=== PATIENT | male | born 1975 | race Caucasian/White ===

== ENCOUNTER 2021-10-14 20:56 | Inpatient (IN) | payer OTHER, SELFPAY ==
[2021-10-14 21:24] VITALS: BP 139/86; PULSE 84; RESP 16; TEMP 36.3; O2SAT 96
[2021-10-14 22:57] VITALS: BMI 36.0
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
[2021-10-15 06:00] VITALS: BP 135/86; PULSE 85; RESP 18; TEMP 36.6; O2SAT 94
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
[2021-10-15] MEDS: busPIRone HCl 10 MG TABLET PO ×2 (09:27→22:43)
[2021-10-15] MEDS: Loratadine 10 MG TABLET PO (09:27)
[2021-10-15] MEDS: Sertraline HCL 50 MG TABLET PO (09:28)
[2021-10-15] MEDS: Metoprolol Succinate ER 25 MG TAB.ER.24H PO (09:28)
[2021-10-15] MEDS: Nicotine 21 MG PATCH.TD24 TRANSDERMA (09:29)
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
[2021-10-15 19:50] VITALS: BP 129/84; PULSE 89; TEMP 37.1
[2021-10-15] MEDS: QUEtiapine Fumarate 50 MG TABLET PO (22:44)
--- NOTE | 2021-10-16 | ECG_ITS ---
Test Reason : tachycardia Blood Pressure : / mmHG Vent. Rate : 110 BPM Atrial Rate : 110 BPM P-R Int : 144 ms QRS Dur : 082 ms QT Int : 336 ms P-R-T Axes : 058 063 052 degrees QTc Int : 454 ms Sinus tachycardia RSR' or QR pattern in V1 suggests right ventricular conduction delay Nonspecific ST abnormality Inferior leads Abnormal ECG No previous ECGs available Referred By: Isabella Howe Electronically Signed By:GWYN BRANDT MD
[2021-10-16 06:00] VITALS: BP 141/56; PULSE 71; RESP 18; TEMP 36.3; O2SAT 96
[2021-10-16 08:08] LABS: Estimated Average Glucose 111 mg/dL; Hemoglobin A1c % 5.5 %
[2021-10-16 08:15] LABS: Cholesterol 170 mg/dL; HDL Cholesterol 42 mg/dL; LDL Cholesterol Calculated 95 mg/dl; Triglycerides 167 mg/dL
[2021-10-16 08:27] VITALS: BP 132/72; PULSE 87
[2021-10-16] MEDS: Metoprolol Succinate ER 25 MG TAB.ER.24H PO (08:27)
[2021-10-16] MEDS: Nicotine 21 MG PATCH.TD24 TRANSDERMA (08:27)
[2021-10-16] MEDS: Sertraline HCL 50 MG TABLET PO (08:27)
[2021-10-16] MEDS: Loratadine 10 MG TABLET PO (08:27)
[2021-10-16] MEDS: Thiamine HCL 100 MG TABLET PO (08:27)
[2021-10-16] MEDS: busPIRone HCl 10 MG TABLET PO ×2 (08:28→20:12)
[2021-10-16] MEDS: Multivitamin TABLET 1 TAB PO (08:29)
[2021-10-16] MEDS: Cholecalciferol (Vitamin D3) 10 MCG TABLET PO (08:29)
[2021-10-16 08:33] LABS: TSH reflex Free T4 1.23 uIU/mL (0.32-4.0)
--- NOTE | 2021-10-16 11:36 | HO.PSYCHPN ---
Subjective Subjective Date of Service: 10/16/21 Reason For Visit: PTSD Subjective Notes: Conditional Voluntary Healthcare Proxy: No Guardianship: No Medical Problems Affecting Mental Status: No Interim History: feels better back on medications- no s/e doesn't want adjustment Medication Compliance: Yes Side effects from medications: No Review of Systems Acute medical concerns: No Medical Review of Systems: unchanged Mental Status Exam Mental Status Exam Patient Appearance: Unkempt Patient Orientation: Person, Place and Situation Level of Consciousness: Awake Patient Behavior: Appropriate and Cooperative Mood Description: Calm Affect Description: Calm Patient Cognition Impaired: No Ability to Follow Directions: Fair Speech Pattern: Clear Hallucinations: None Delusions: Not Present Thought Process: Intact and Goal Oriented Thought Content: positive for Intact Judgement: Fair Diagnostics Vital Signs (24Hr): Vital Signs - 24 hr 10/15/21 19:50 10/16/21 06:00 10/16/21 08:27 Temperature 98.7 F 97.4 F Pulse Rate 89 71 87 Respiratory Rate 18 Blood Pressure 129/84 141/56 H 132/72 Pulse Oximetry 96 Body Mass Index 36.0 Labs Labs: Laboratory Results - last 48 hr 10/16/21 10/16/21 10/16/21 07:37 07:37 07:37 Estimat Average Glucose 111 Hemoglobin A1c % 5.5 Triglycerides 167 Cholesterol 170 LDL Cholesterol, Calc 95 HDL Cholesterol 42 TSH Cancelled 10/16/21 07:37 Estimat Average Glucose Hemoglobin A1c % Triglycerides Cholesterol LDL Cholesterol, Calc HDL Cholesterol TSH 1.23 Medications Medications Current Medications Acetaminophen (Acetaminophen 325 Mg Tablet) 650 mg PO Q6H PRN PRN Reason: Headache/Pain Mild Scale (1-3) Al Hydroxide/Mg Hydroxide (Magnesium Hydrox/Alum Hydrox 30 Ml Oral.Susp) 30 ml PO Q6H PRN PRN Reason: Heartburn/Nausea Buspirone HCl (Buspirone Hcl 10 Mg Tablet) 10 mg PO BID [facility] Last Admin: 10/16/21 08:28 Dose: 10 mg Documented by: Hydroxyzine HCl (Hydroxyzine Hcl 25 Mg Tablet) 25 mg PO BEDTIME PRN PRN Reason: Anxiety Hydroxyzine HCl (Hydroxyzine Hcl 50 Mg Tablet) 50 mg PO Q6H PRN PRN Reason: anxiety Loratadine (Loratadine 10 Mg Tablet) 10 mg PO DAILY [facility] Last Admin: 10/16/21 08:27 Dose: 10 mg Documented by: Magnesium Hydroxide (Milk Of Magnesia 30 Ml Oral.Susp) 30 ml PO DAILY PRN PRN Reason: Constipation Metoprolol Succinate (Metoprolol Succinate Er 25 Mg Tab.Er.24h) 25 mg PO DAILY [facility]; Protocol Last Admin: 10/16/21 08:27 Dose: 25 mg Documented by: Multivitamins/Vitamin C (Multivitamin Tablet) 1 tab PO DAILY [facility] Last Admin: 10/16/21 08:29 Dose: 1 tab Documented by: Nicotine (Nicotine 21 Mg Patch.Td24) 21 mg TRANSDERMA DAILY [facility] Last Admin: 10/16/21 08:27 Dose: 21 mg Documented by: Nicotine Polacrilex (Nicotine Polacrilex 2 Mg Gum) 2 mg BUCCAL Q2H PRN PRN Reason: Smoking Cessation Quetiapine Fumarate (Quetiapine Fumarate 50 Mg Tablet) 50 mg PO BEDTIME [facility] Last Admin: 10/15/21 22:44 Dose: 50 mg Documented by: Sertraline HCl (Sertraline Hcl 50 Mg Tablet) 50 mg PO DAILY [facility] Last Admin: 10/16/21 08:27 Dose: 50 mg Documented by: Thiamine HCl (Thiamine Hcl 100 Mg Tablet) 100 mg PO DAILY [facility] Last Admin: 10/16/21 08:27 Dose: 100 mg Documented by: Trazodone HCl (Trazodone Hcl 50 Mg Tablet) 50 mg PO BEDTIME PRN PRN Reason: Insomnia Vitamin D (Cholecalciferol (Vitamin D3) 10 Mcg Tablet) 10 mcg PO DAILY [facility] Last Admin: 10/16/21 08:29 Dose: 10 mcg Documented by: Allergies Allergies Allergy/AdvReac Type Severity Reaction Status Date / Time tomato Allergy Severe Swelling Verified 10/14/21 21:24 Assessment & Plan Assessment & Plan (1) Recurrent major depression-severe: Status: Acute Code(s): F33.2 - Major depressive disorder, recurrent severe without psychotic features Assessment and Plan: Continue current regime Titrate regime as indicated when re-established Referral for out patient care feeling better back on meds (2) Alcohol use disorder, severe, dependence: Status: Acute Code(s): F10.20 - Alcohol dependence, uncomplicated Assessment and Plan: CIWA MVI 1 daily Thiamine 100 mg daily Vitamin D 10 mcg daily A1C, Lipids, TSH, FT4, B12, Folate Assessment and Plan: no acute withdrawl I spent minutes with the patient and/or on the patient floor today, greater than?50% of which was spent counseling/coordinating care. Reason for contiued inpatient stay Substantial Risk for: rapid decompensation
[2021-10-16 20:00] VITALS: BP 148/72; PULSE 97; RESP 18; TEMP 36.6; O2SAT 96
[2021-10-16] MEDS: QUEtiapine Fumarate 50 MG TABLET PO (20:11)
[2021-10-17 06:00] VITALS: BP 106/66; PULSE 102; RESP 18; TEMP 36.4; O2SAT 96
[2021-10-17 09:03] VITALS: BP 111/80; PULSE 111
[2021-10-17] MEDS: Multivitamin TABLET 1 TAB PO (09:03)
[2021-10-17] MEDS: Cholecalciferol (Vitamin D3) 10 MCG TABLET PO (09:03)
[2021-10-17] MEDS: Sertraline HCL 50 MG TABLET PO (09:03)
[2021-10-17] MEDS: busPIRone HCl 10 MG TABLET PO ×2 (09:03→21:52)
[2021-10-17] MEDS: Loratadine 10 MG TABLET PO (09:03)
[2021-10-17] MEDS: Thiamine HCL 100 MG TABLET PO (09:03)
[2021-10-17] MEDS: Nicotine 21 MG PATCH.TD24 TRANSDERMA (09:03)
[2021-10-17] MEDS: Metoprolol Succinate ER 25 MG TAB.ER.24H PO (09:03)
--- NOTE | 2021-10-17 10:58 | P.PNPSI_ITS ---
Subjective Subjective Date of Service: 10/17/21 Reason For Visit: PTSD Subjective Notes: Conditional Voluntary Healthcare Proxy: No Guardianship: No Medical Problems Affecting Mental Status: No Interim History: Continues to feel improved some trouble with dry mouth over cpap without water- Denies craving etoh=- or other sub no withdrawl Sleep ok otgter than dry mouth/throat no s/e of medications no SI Plans to get outpt care at [facility] or [facility] which are near where he lives- He has support of dad and neighbors Medication Compliance: Yes Side effects from medications: No Attending Groups: No Review of Systems Acute medical concerns: No Medical Review of Systems: unchanged Mental Status Exam Mental Status Exam Narrative: better eye contact Patient Appearance: Appropriate Patient Orientation: Person, Place and Situation Level of Consciousness: Awake Patient Behavior: Appropriate and Cooperative Mood Description: Calm Affect Description: Calm Patient Cognition Impaired: No Ability to Follow Directions: Fair Speech Pattern: Clear Hallucinations: None Delusions: Not Present Thought Process: Intact and Goal Oriented Thought Content: positive for Intact Judgement: Fair Diagnostics Vital Signs (24Hr): Vital Signs - 24 hr 10/16/21 20:00 10/17/21 06:00 10/17/21 09:03 Temperature 97.8 F 97.6 F Pulse Rate 97 102 H 111 H Respiratory Rate 18 18 Blood Pressure 148/72 H 106/66 111/80 Pulse Oximetry 96 96 Body Mass Index 36.0 Labs Labs: Laboratory Results - last 48 hr 10/16/21 10/16/21 10/16/21 07:37 07:37 07:37 Estimat Average Glucose 111 Hemoglobin A1c % 5.5 Triglycerides 167 Cholesterol 170 LDL Cholesterol, Calc 95 HDL Cholesterol 42 TSH Cancelled 10/16/21 07:37 Estimat Average Glucose Hemoglobin A1c % Triglycerides Cholesterol LDL Cholesterol, Calc HDL Cholesterol TSH 1.23 EKG EKG: reviewed (10/17/21) Medications Medications Current Medications Acetaminophen (Acetaminophen 325 Mg Tablet) 650 mg PO Q6H PRN PRN Reason: Headache/Pain Mild Scale (1-3) Al Hydroxide/Mg Hydroxide (Magnesium Hydrox/Alum Hydrox 30 Ml Oral.Susp) 30 ml PO Q6H PRN PRN Reason: Heartburn/Nausea Buspirone HCl (Buspirone Hcl 10 Mg Tablet) 10 mg PO BID [facility] Last Admin: 10/17/21 09:03 Dose: 10 mg Documented by: Hydroxyzine HCl (Hydroxyzine Hcl 25 Mg Tablet) 25 mg PO BEDTIME PRN PRN Reason: Anxiety Hydroxyzine HCl (Hydroxyzine Hcl 50 Mg Tablet) 50 mg PO Q6H PRN PRN Reason: anxiety Loratadine (Loratadine 10 Mg Tablet) 10 mg PO DAILY [facility] Last Admin: 10/17/21 09:03 Dose: 10 mg Documented by: Magnesium Hydroxide (Milk Of Magnesia 30 Ml Oral.Susp) 30 ml PO DAILY PRN PRN Reason: Constipation Metoprolol Succinate (Metoprolol Succinate Er 25 Mg Tab.Er.24h) 25 mg PO DAILY [facility]; Protocol Last Admin: 10/17/21 09:03 Dose: 25 mg Documented by: Multivitamins/Vitamin C (Multivitamin Tablet) 1 tab PO DAILY [facility] Last Admin: 10/17/21 09:03 Dose: 1 tab Documented by: Nicotine (Nicotine 21 Mg Patch.Td24) 21 mg TRANSDERMA DAILY [facility] Last Admin: 10/17/21 09:03 Dose: 21 mg Documented by: Nicotine Polacrilex (Nicotine Polacrilex 2 Mg Gum) 2 mg BUCCAL Q2H PRN PRN Reason: Smoking Cessation Quetiapine Fumarate (Quetiapine Fumarate 50 Mg Tablet) 50 mg PO BEDTIME [facility] Last Admin: 10/16/21 20:11 Dose: 50 mg Documented by: Sertraline HCl (Sertraline Hcl 50 Mg Tablet) 50 mg PO DAILY [facility] Last Admin: 10/17/21 09:03 Dose: 50 mg Documented by: Thiamine HCl (Thiamine Hcl 100 Mg Tablet) 100 mg PO DAILY [facility] Last Admin: 10/17/21 09:03 Dose: 100 mg Documented by: Trazodone HCl (Trazodone Hcl 50 Mg Tablet) 50 mg PO BEDTIME PRN PRN Reason: Insomnia Vitamin D (Cholecalciferol (Vitamin D3) 10 Mcg Tablet) 10 mcg PO DAILY [facility] Last Admin: 10/17/21 09:03 Dose: 10 mcg Documented by: Allergies Allergies Allergy/AdvReac Type Severity Reaction Status Date / Time tomato Allergy Severe Swelling Verified 10/14/21 21:24 Assessment & Plan Assessment & Plan (1) Recurrent major depression-severe: Status: Acute Code(s): F33.2 - Major depressive disorder, recurrent severe without psychotic features Assessment and Plan: Continue current regime pt happy with medications at present Referral for out patient care feeling better back on meds future oriented (2) Alcohol use disorder, severe, dependence: Status: Acute Code(s): F10.20 - Alcohol dependence, uncomplicated Assessment and Plan: CIWA- has not needed benzo MVI 1 daily Thiamine 100 mg daily Vitamin D 10 mcg daily A1C, Lipids, TSH, FT4, B12, Folate denies cravings or withdrawl sys Assessment and Plan: no acute withdrawl or cravings I spent minutes with the patient and/or on the patient floor today, greater than?50% of which was spent counseling/coordinating care. Patient educated on: medication risk/benefits, substance abuse and other (dc follow up,not interested in php) Informed Consent: understands Reason for contiued inpatient stay Substantial Risk for: rapid decompensation
[2021-10-17 21:45] VITALS: BP 156/81; PULSE 99; TEMP 36
[2021-10-17] MEDS: QUEtiapine Fumarate 50 MG TABLET PO (21:51)
[2021-10-17 23:24] VITALS: PULSE 98; O2SAT 93
[2021-10-18 06:42] VITALS: BP 132/62; PULSE 96; RESP 18; TEMP 37; O2SAT 95
[2021-10-18] MEDS: Nicotine 21 MG PATCH.TD24 TRANSDERMA (08:54)
[2021-10-18] MEDS: Multivitamin TABLET 1 TAB PO (08:54)
[2021-10-18] MEDS: Loratadine 10 MG TABLET PO (08:54)
[2021-10-18 08:55] VITALS: BP 132/62; PULSE 96
[2021-10-18] MEDS: Thiamine HCL 100 MG TABLET PO (08:55)
[2021-10-18] MEDS: Metoprolol Succinate ER 25 MG TAB.ER.24H PO (08:55)
[2021-10-18] MEDS: Cholecalciferol (Vitamin D3) 10 MCG TABLET PO (08:55)
[2021-10-18] MEDS: busPIRone HCl 10 MG TABLET PO ×2 (08:55→21:29)
[2021-10-18] MEDS: Sertraline HCL 50 MG TABLET PO (08:55)
[2021-10-18 09:35] LABS: Folate 17.5 ng/mL (> or = 4.0); Vitamin B12 597 pg/mL (200-900)
--- NOTE | 2021-10-18 13:17 | P.PNPSI_ITS ---
Subjective Subjective Date of Service: 10/18/21 Reason For Visit: PTSD Subjective Notes: Conditional Voluntary Healthcare Proxy: No Guardianship: No Medical Problems Affecting Mental Status: No Interim History: No symptoms of withdrawal. Pt reports no SE with re- establishing medication regime. Met with pt and Evangelista MORA. Discharge planned for 10/20. Pt asking for referral for new OP team. Feeling stronger-wanting to talk with his staff attorney today regarding his case and how to proceed. I am ready to deal with this. Medication Compliance: Yes Side effects from medications: No Attending Groups: Yes Review of Systems Acute medical concerns: No Medical Review of Systems: unchanged Review of Systems Psychiatric: Reports anxiety Mental Status Exam Mental Status Exam Narrative: better eye contact Patient Appearance: Appropriate Patient Orientation: Person, Place and Situation Level of Consciousness: Awake Patient Behavior: Appropriate and Cooperative Mood Description: Calm Affect Description: Calm Patient Cognition Impaired: No Ability to Follow Directions: Fair Speech Pattern: Clear Hallucinations: None Delusions: Not Present Thought Process: Intact and Goal Oriented Thought Content: positive for Intact Judgement: Fair Diagnostics Vital Signs (24Hr): Vital Signs - 24 hr 10/17/21 21:45 10/18/21 06:42 10/18/21 08:55 Temperature 96.8 F 98.6 F Pulse Rate 99 96 96 Respiratory Rate 18 Blood Pressure 156/81 H 132/62 132/62 Pulse Oximetry 95 Body Mass Index 36.0 Labs Labs: Laboratory Results - last 48 hr 10/16/21 07:37 Vitamin B12 597 Folate 17.5 Medications Medications Current Medications Acetaminophen (Acetaminophen 325 Mg Tablet) 650 mg PO Q6H PRN PRN Reason: Headache/Pain Mild Scale (1-3) Al Hydroxide/Mg Hydroxide (Magnesium Hydrox/Alum Hydrox 30 Ml Oral.Susp) 30 ml PO Q6H PRN PRN Reason: Heartburn/Nausea Buspirone HCl (Buspirone Hcl 10 Mg Tablet) 10 mg PO BID [facility] Last Admin: 10/18/21 08:55 Dose: 10 mg Documented by: Hydroxyzine HCl (Hydroxyzine Hcl 25 Mg Tablet) 25 mg PO BEDTIME PRN PRN Reason: Anxiety Hydroxyzine HCl (Hydroxyzine Hcl 50 Mg Tablet) 50 mg PO Q6H PRN PRN Reason: anxiety Loratadine (Loratadine 10 Mg Tablet) 10 mg PO DAILY [facility] Last Admin: 10/18/21 08:54 Dose: 10 mg Documented by: Magnesium Hydroxide (Milk Of Magnesia 30 Ml Oral.Susp) 30 ml PO DAILY PRN PRN Reason: Constipation Metoprolol Succinate (Metoprolol Succinate Er 25 Mg Tab.Er.24h) 25 mg PO DAILY [facility]; Protocol Last Admin: 10/18/21 08:55 Dose: 25 mg Documented by: Multivitamins/Vitamin C (Multivitamin Tablet) 1 tab PO DAILY [facility] Last Admin: 10/18/21 08:54 Dose: 1 tab Documented by: Nicotine (Nicotine 21 Mg Patch.Td24) 21 mg TRANSDERMA DAILY [facility] Last Admin: 10/18/21 08:54 Dose: 21 mg Documented by: Nicotine Polacrilex (Nicotine Polacrilex 2 Mg Gum) 2 mg BUCCAL Q2H PRN PRN Reason: Smoking Cessation Quetiapine Fumarate (Quetiapine Fumarate 50 Mg Tablet) 50 mg PO BEDTIME [facility] Last Admin: 10/17/21 21:51 Dose: 50 mg Documented by: Sertraline HCl (Sertraline Hcl 50 Mg Tablet) 50 mg PO DAILY [facility] Last Admin: 10/18/21 08:55 Dose: 50 mg Documented by: Thiamine HCl (Thiamine Hcl 100 Mg Tablet) 100 mg PO DAILY [facility] Last Admin: 10/18/21 08:55 Dose: 100 mg Documented by: Trazodone HCl (Trazodone Hcl 50 Mg Tablet) 50 mg PO BEDTIME PRN PRN Reason: Insomnia Vitamin D (Cholecalciferol (Vitamin D3) 10 Mcg Tablet) 10 mcg PO DAILY [facility] Last Admin: 10/18/21 08:55 Dose: 10 mcg Documented by: Allergies Allergies Allergy/AdvReac Type Severity Reaction Status Date / Time tomato Allergy Severe Swelling Verified 10/14/21 21:24 Assessment & Plan Assessment & Plan (1) Recurrent major depression-severe: Status: Acute Code(s): F33.2 - Major depressive disorder, recurrent severe without psychotic features Assessment and Plan: Continue current regime pt happy with medications at present Referral for out patient care feeling better back on meds future oriented (2) Alcohol use disorder, severe, dependence: Status: Acute Code(s): F10.20 - Alcohol dependence, uncomplicated Assessment and Plan: CIWA- has not needed benzo MVI 1 daily Thiamine 100 mg daily Vitamin D 10 mcg daily A1C, Lipids, TSH, FT4, B12, Folate denies cravings or withdrawl sys Assessment and Plan: no acute withdrawl or cravings Tentative discharge for 10/20/21. I spent 25 minutes with the patient and/or on the patient floor today, greater than?50% of which was spent counseling/coordinating care. Patient educated on: therapeutic strategies Informed Consent: understands Reason for contiued inpatient stay Substantial Risk for: harm to self, inability to function and rapid decompensation
[2021-10-18 17:55] VITALS: BP 140/72; PULSE 102; TEMP 36.8; O2SAT 96
[2021-10-18] MEDS: QUEtiapine Fumarate 50 MG TABLET PO (21:29)
[2021-10-18 23:26] VITALS: PULSE 101; O2SAT 94
[2021-10-19 06:00] VITALS: BP 117/80; PULSE 99
[2021-10-19 08:45] VITALS: BP 124/77; PULSE 104; RESP 20; O2SAT 97
[2021-10-19] MEDS: Loratadine 10 MG TABLET PO (09:03)
[2021-10-19] MEDS: Thiamine HCL 100 MG TABLET PO (09:03)
[2021-10-19] MEDS: Cholecalciferol (Vitamin D3) 10 MCG TABLET PO (09:03)
[2021-10-19] MEDS: busPIRone HCl 10 MG TABLET PO ×2 (09:03→20:15)
[2021-10-19] MEDS: Sertraline HCL 50 MG TABLET PO (09:03)
[2021-10-19] MEDS: Multivitamin TABLET 1 TAB PO (09:03)
[2021-10-19 09:04] VITALS: BP 124/77; PULSE 104
[2021-10-19] MEDS: Nicotine 21 MG PATCH.TD24 TRANSDERMA (09:04)
[2021-10-19] MEDS: Metoprolol Succinate ER 25 MG TAB.ER.24H PO (09:04)
--- NOTE | 2021-10-19 10:02 | P.PNPSI_ITS ---
Subjective Subjective Date of Service: 10/19/21 Reason For Visit: PTSD Subjective Notes: Conditional Voluntary Interim History: Pt reports decrease symptoms of depression and more hopeful about his recovery. He denies SI/HI. He reports sleeping and eating well. He r eports missing his roommates at shared housing. He reports he wants to go back home soon. He is visible in the unit, he attends groups. No behavioral concern. Medication Compliance: Yes Side effects from medications: No Review of Systems Review of Systems Gen: no fever Resp: no sob, no cough CV: no chest, no NICHOLAS, no leg edema GI: No n/v, no abd pain Neuro: No confusion chronic pain Yes all other systems are reviewed and are negative Constitutional: Reports no additional constitutional complaints and Reports stops breathing during sleep (has CPAP) Eyes: Reports no additional eye complaints Reports system reviewed and no additional complaints, except as documented and Reports Normal hearing present Cardiovascular: Reports no additional cardiovascular complaints Respiratory: Reports no additional respiratory complaints Gastrointestinal: Reports no additional gastrointestinal complaints Genitourinary: Reports no additional male genitourinary complaints Musculoskeletal: Reports no additional musculoskeletal complaints Skin/Breast: Reports system reviewed and no additional complaints, except as docu Reports Normal hearing present and Reports behavioral changes Psychiatric: Reports abnormal sleep pattern, Reports anxiety, Reports behavioral changes, Reports change in appetite, Reports depression, Reports difficulty co ncentrating, Reports hopelessness, Reports anhedonia and Reports suicidal ideation Endocrine: Reports no additional endocrine complaints Hematologic/Lymphatic: Reports no additional hematologic/lymphatic complaints Allergic/Immunologic: Reports no additional allergic/immunologic complaints Mental Status Exam Mental Status Exam Narrative: better eye contact Patient Appearance: Appropriate Patient Orientation: Person, Place and Situation Level of Consciousness: Awake Patient Behavior: Appropriate and Cooperative Mood Description: Calm Affect Description: Calm Patient Cognition Impaired: No Ability to Follow Directions: Fair Speech Pattern: Clear Memory Description: Intact Diagnostics Vital Signs (24Hr): Vital Signs - 24 hr 10/19/21 18:00 10/20/21 06:10 10/20/21 09:08 Temperature 97.8 F 96.9 F Pulse Rate 97 103 H 110 H Respiratory Rate 18 18 Blood Pressure 146/72 H 125/75 135/87 Pulse Oximetry 97 96 Body Mass Index 36.0 Medications Medications Current Medications Acetaminophen (Acetaminophen 325 Mg Tablet) 650 mg PO Q6H PRN PRN Reason: Headache/Pain Mild Scale (1-3) Al Hydroxide/Mg Hydroxide (Magnesium Hydrox/Alum Hydrox 30 Ml Oral.Susp) 30 ml PO Q6H PRN PRN Reason: Heartburn/Nausea Buspirone HCl (Buspirone Hcl 10 Mg Tablet) 10 mg PO BID [facility] Last Admin: 10/20/21 09:08 Dose: 10 mg Documented by: Hydroxyzine HCl (Hydroxyzine Hcl 25 Mg Tablet) 25 mg PO BEDTIME PRN PRN Reason: Anxiety Hydroxyzine HCl (Hydroxyzine Hcl 50 Mg Tablet) 50 mg PO Q6H PRN PRN Reason: anxiety Loratadine (Loratadine 10 Mg Tablet) 10 mg PO DAILY [facility] Last Admin: 10/20/21 09:08 Dose: 10 mg Documented by: Magnesium Hydroxide (Milk Of Magnesia 30 Ml Oral.Susp) 30 ml PO DAILY PRN PRN Reason: Constipation Metoprolol Succinate (Metoprolol Succinate Er 25 Mg Tab.Er.24h) 25 mg PO DAILY [facility]; Protocol Last Admin: 10/20/21 09:08 Dose: 25 mg Documented by: Multivitamins/Vitamin C (Multivitamin Tablet) 1 tab PO DAILY [facility] Last Admin: 10/20/21 09:08 Dose: 1 tab Documented by: Nicotine (Nicotine 21 Mg Patch.Td24) 21 mg TRANSDERMA DAILY [facility] Last Admin: 10/20/21 09:07 Dose: 21 mg Documented by: Nicotine Polacrilex (Nicotine Polacrilex 2 Mg Gum) 2 mg BUCCAL Q2H PRN PRN Reason: Smoking Cessation Quetiapine Fumarate (Quetiapine Fumarate 50 Mg Tablet) 50 mg PO BEDTIME [facility] Last Admin: 10/19/21 20:15 Dose: 50 mg Documented by: Sertraline HCl (Sertraline Hcl 50 Mg Tablet) 50 mg PO DAILY [facility] Last Admin: 10/20/21 09:08 Dose: 50 mg Documented by: Thiamine HCl (Thiamine Hcl 100 Mg Tablet) 100 mg PO DAILY [facility] Last Admin: 10/20/21 09:08 Dose: 100 mg Documented by: Trazodone HCl (Trazodone Hcl 50 Mg Tablet) 50 mg PO BEDTIME PRN PRN Reason: Insomnia Vitamin D (Cholecalciferol (Vitamin D3) 10 Mcg Tablet) 10 mcg PO DAILY [facility] Last Admin: 10/20/21 09:08 Dose: 10 mcg Documented by: Allergies Allergies Allergy/AdvReac Type Severity Reaction Status Date / Time tomato Allergy Severe Swelling Verified 10/14/21 21:24 Assessment & Plan Assessment & Plan (1) Recurrent major depression-severe: Status: Acute Code(s): F33.2 - Major depressive disorder, recurrent severe without psychotic features Assessment and Plan: Continue current regime pt happy with medications at present Referral for out patient care feeling better back on meds future oriented (2) Alcohol use disorder, severe, dependence: Status: Acute Code(s): F10.20 - Alcohol dependence, uncomplicated Assessment and Plan: CIWA- has not needed benzo MVI 1 daily Thiamine 100 mg daily Vitamin D 10 mcg daily A1C, Lipids, TSH, FT4, B12, Folate denies cravings or withdrawl sys Assessment and Plan: no acute withdrawl or cravings Tentative discharge for 10/20/21. I spent minutes with the patient and/or on the patient floor today, greater than?50% of which was spent counseling/coordinating care. Reason for contiued inpatient stay Substantial Risk for: stable for discharge
[2021-10-19 18:00] VITALS: BP 146/72; PULSE 97; RESP 18; TEMP 36.6; O2SAT 97
[2021-10-19] MEDS: QUEtiapine Fumarate 50 MG TABLET PO (20:15)
[2021-10-20 00:32] VITALS: PULSE 98; O2SAT 94
[2021-10-20 06:10] VITALS: BP 125/75; PULSE 103; RESP 18; TEMP 36.1; O2SAT 96
[2021-10-20] MEDS: Nicotine 21 MG PATCH.TD24 TRANSDERMA (09:07)
[2021-10-20 09:08] VITALS: BP 135/87; PULSE 110
[2021-10-20] MEDS: Loratadine 10 MG TABLET PO (09:08)
[2021-10-20] MEDS: Cholecalciferol (Vitamin D3) 10 MCG TABLET PO (09:08)
[2021-10-20] MEDS: busPIRone HCl 10 MG TABLET PO (09:08)
[2021-10-20] MEDS: Thiamine HCL 100 MG TABLET PO (09:08)
[2021-10-20] MEDS: Multivitamin TABLET 1 TAB PO (09:08)
[2021-10-20] MEDS: Sertraline HCL 50 MG TABLET PO (09:08)
[2021-10-20] MEDS: Metoprolol Succinate ER 25 MG TAB.ER.24H PO (09:08)
--- NOTE | 2021-10-20 13:50 | P.DS_ITS ---
DS: Providers Provider Date of Service: 10/20/21 Date of admission: 10/14/21 20:56 Date of discharge: 10/20/21 Primary care physician: Unknown Physician Admitting clinician: Roxane Presley Attending physician on admission: Randy Nunez Consults: 10/14/21 23:20 Consult to Hospitalist Routine Consulting Provider: Hospitalist Reason For Exam: new admit Attending physician on discharge: Randy Nunez Discharging clinician: Roxane Presley DS: Diagnosis Discharge Diagnosis (1) Recurrent major depression-severe: Status: Acute (2) Alcohol use disorder, severe, dependence: Status: Acute DS: Medications Discharge Medications Home Medications: Previous Rx's Medication Instructions Recorded buspirone 10 mg tablet 1 tab PO BID #60 tab 10/20/21 cetirizine 10 mg tablet 1 tab PO DAILY #30 tab 10/20/21 cholecalciferol (vitamin D3) 10 10 mcg PO DAILY #30 tab 10/20/21 mcg (400 unit) tablet (Vitamin D3) metoprolol succinate 25 mg 1 tab PO DAILY #30 tab 10/20/21 tablet,extended release 24 hr multivitamin (Daily-Kevin) 1 tab PO DAILY #30 tab 10/20/21 naltrexone 50 mg tablet 50 mg PO DAILY #30 tab 10/20/21 nicotine (polacrilex) 2 mg gum 2 mg PO Q2H PRN #60 ea 10/20/21 nicotine 21 mg/24 hr daily 21 mg TRANSDERMAL DAILY #30 ea 10/20/21 transdermal patch quetiapine 50 mg tablet 1 tab PO BEDTIME #30 tab 10/20/21 sertraline 50 mg tablet 1 tab PO DAILY #30 tab 10/20/21 thiamine mononitrate (vit B1) 100 100 mg PO DAILY #30 tab 10/20/21 mg tablet trazodone 50 mg tablet 50 mg PO BEDTIME PRN #30 tab 10/20/21 Mental Status Exam Mental Status Exam Patient Appearance: Appropriate Patient Orientation: Person, Place, Time and Situation Level of Consciousness: Alert Patient Behavior: Appropriate, Talkative and Good Eye Contact Mood Description: Flat Affect Description: Flat Patient Cognition Impaired: No Ability to Follow Directions: Good Speech Pattern: Spontaneous Speech Memory Description: Intact Hallucinations: None Delusions: Not Present Thought Process: Goal Oriented Thought Content: positive for Goal Oriented Judgement: Good Data Data Completed and Pending Completed studies during hospitalization [Text1]: 10/16/21 10/16/21 10/16/21 07:37 07:37 07:37 Estimat Average Glucose 111 Hemoglobin A1c % 5.5 Triglycerides 167 Cholesterol 170 LDL Cholesterol, Calc 95 HDL Cholesterol 42 Vitamin B12 597 Folate 17.5 TSH 10/16/21 10/16/21 07:37 07:37 Estimat Average Glucose Hemoglobin A1c % Triglycerides Cholesterol LDL Cholesterol, Calc HDL Cholesterol Vitamin B12 Folate TSH Cancelled 1.23 DS: Summary Hospital Course Hospital Course: Admission to adult psychiatry to address symptoms of depression, alcohol use disorder, and situational crisis. Care plan, medication regime and out patient plan of care prior to admission were reviewed. Education was provided regarding management of symptoms, medications and side effects. Nursing and Senior Principal Process Engineer worked with Mio on collateral contacts, care planning, education regarding symptom management, medications and discharge planning. Previous regime was re-started as pt reported efficacy prior to stopping regime, this being one of the precipitants to his admission to psychiatry. Time spent discussing smoking cessation with patient: 3 to 10 minutes Status at Discharge Cognitive/behavioral status at discharge: non-psychotic, non-suicidal Functional status at discharge: independent ambulation Overall status at discharge: patient is progressing back to baseline Time Spent with Patient Time attestation: Total time spent providing and/or coordinating discharge services: 35 Time spent: Greater than 30 minutes Discharge Plan Discharge Patient Disposition: Home, Self-Care Discharge Diagnosis: Recurrent Major Depression Alcohol Use Disorder Referrals: Kylie Curiel [Other] - 10/26/21 1:00 pm (Initial Diagnostic Evaluation for therapy Appointment by tele-health ) Anusha Sampson MD [Physician] - 10/21/21 2:00 pm Discharge Medications: New multivitamin [Daily-Kevin] Tablet 1 tab PO DAILY Qty: 30 RF: 0 trazodone 50 mg Tablet 50 mg PO BEDTIME PRN (Reason: Insomnia) Qty: 30 RF: 0 nicotine 21 mg/24 hr Patch 24 Hour 21 mg transdermal DAILY Qty: 30 RF: 0 cholecalciferol (vitamin D3) [Vitamin D3] 10 mcg (400 unit) Tablet 10 mcg PO DAILY Qty: 30 RF: 0 thiamine mononitrate (vit B1) 100 mg Tablet 100 mg PO DAILY Qty: 30 RF: 0 naltrexone 50 mg tablet 50 mg PO DAILY Qty: 30 RF: 0 Continued cetirizine 10 mg tablet 1 tab PO DAILY Qty: 30 RF: 0 nicotine (polacrilex) 2 mg gum 2 mg PO Q2H PRN (Reason: Smoking Cessation) Qty: 60 RF: 0 buspirone 10 mg tablet 1 tab PO BID Qty: 60 RF: 0 metoprolol succinate 25 mg tablet extended release 24 hr 1 tab PO DAILY Qty: 30 RF: 0 sertraline 50 mg tablet 1 tab PO DAILY Qty: 30 RF: 0 quetiapine 50 mg tablet 1 tab PO BEDTIME Qty: 30 RF: 0 Discontinued hydroxyzine HCl 50 mg tablet 1 tab PO Q6H PRN (Reason: anxiety) RF: 0 Discharge Orders: Discharge Order (Routine); Ordered 10/20/21 Ordered By: Roxane Presley Diet: advance to usual diet Activity on Discharge: As tolerated Stand Alone Forms: Patient Portal Discharge page Care Plan Goals: Mood Stabilization Sobriety Health Concerns: Recurrent Major Depression Alcohol Use Disorder Obstructive Sleep Apnea Hypertension Plan of Treatment: Attend scheduled appointments Take medications as directed If symptoms increase or intensify, contact local emergency services and/or go to the nearest emergency department for evaluation and assistance. Assessment: non-psychotic, non-suicidal Discharge Date/Time: 10/20/21 14:00
== END 2021-10-20 14:00 | disposition home or self-care (01) | DRG 751 ==
PROVIDERS: Admitting Provider Psychiatry & Neurology Psychiatry; Visit Provider Clinical Nurse Specialist Psychiatric/Mental Health, Adult
DX: F33.2 Major depressive disorder, recurrent severe without psychotic features (principal); R45.851 Suicidal ideations; E66.9 Obesity, unspecified; F10.20 Alcohol dependence, uncomplicated; G89.29 Other chronic pain; I10 Essential (primary) hypertension; F17.210 Nicotine dependence, cigarettes, uncomplicated; G47.33 Obstructive sleep apnea (adult) (pediatric); Z71.6 Tobacco abuse counseling; Z99.89 Dependence on other enabling machines and devices; Z79.899 Other long term (current) drug therapy
CPT/HCPCS: 36415; 80061; 82607; 82746; 83036; 84443; 93005; 94660